=== PATIENT | male | born 1975 | race Caucasian/White ===

== ENCOUNTER 2022-09-21 16:47 | Emergency (ER) | payer OTHER, SELFPAY ==
[2022-09-21 16:58] VITALS: BP 135/88; PULSE 74; RESP 18; TEMP 36.8; O2SAT 100
--- NOTE | 2022-09-21 17:26 | PC.NURSE ---
Dinner tray ordered.
[2022-09-21 17:48] LABS: Basophils Absolute Auto 0.1 K/mm3 (0.0-0.1); Basophils Percent Auto 0.6 % (0.2-1.2); Eosinophils Absolute Auto 0.3 K/mm3 (0-0.3); Eosinophils Percent Auto 2.9 % (0-4.4); Hematocrit 47.5 % (42.0-52.0); Hemoglobin 15.5 g/dL (14.0-18.0); Immature Granulocyte Absolute 0.03 K/mm3 (0.00-0.031); Immature Granulocyte Percent A 0.3 % (0-0.5); Lymphocytes Absolute Auto 2.16 K/mm3 (0.9-3.2); Lymphocytes Percent Auto 21.4 % (18.3-44.2); Mean Corpuscular HGB Conc 32.6 g/dl (32-36); Mean Corpuscular Hemoglobin 29.9 pg (26-34); Mean Corpuscular Volume 91.7 fl (80-100); Monocytes Absolute Auto 0.7 K/mm3 (0.1-0.6); Monocytes Percent Auto 6.4 % (2.6-8.5); Neutrophils Absolute Auto 6.9 K/mm3 (1.3-6.7); Neutrophils Percent Auto 68.4 % (45.5-73.1); Platelet Count Result 288 k/mm3 (150-375); Red Blood Count 5.18 M/mm3 (4.6-6.20); Red Cell Distribution Width 13.3 % (11.5-14.5); White Blood Count 10.1 K/mm3 (4.5-10.0)
[2022-09-21 17:49] LABS: Appearance Urine Clear (Clear); Bilirubin Urine Negative (Negative); Blood Urine Negative (Negative); Color Urine Yellow (Yellow); Glucose Urine UA 1+ mg/dL (Negative); Ketones Urine Negative (Negative); Leukocyte Esterase Ur Negative LEU/UL (Negative); Nitrate Urine Negative (Negative); Protein Urine Trace mg/dL (Negative); Specific Grav Ur >= 1.030 (1.001-1.035); Urobilinogen Urine 0.2 mg/dL (<2.0)
[2022-09-21 17:50] LABS: Add Urine Microscopic? NO
[2022-09-21 17:58] LABS: Alanine Aminotransferase 39 U/L (6-50); Albumin Level 4.8 g/dL (3.5-5.1); Alkaline Phosphatase 65 U/L (38-126); Anion Gap 8 mmol/L (8-16); Aspartate Amino Transferase 32 U/L (17-59); Bilirubin,Total 0.5 mg/dL (0.2-1.3); Blood Urea Nitrogen 16 mg/dL (9-20); Calcium 9.4 mg/dL (8.4-10.2); Carbon Dioxide 30 mmol/L (22-30); Chloride 102 mmol/L (98-107); Estimated CRCL calculation 98 ml/min; Estimated Glomerular Filt Rate > 60; Glucose 83 mg/dL (65-110); Potassium 4.3 mmol/L (3.4-5.0); Sodium 140 mmol/L (137-145)
--- NOTE | 2022-09-21 17:59 | ED.GENADULT ---
HPI - General Adult General Chief complaint: Psychiatric Symptoms Stated complaint: SI Time Seen by Provider: 09/21/22 17:43 History of Present Illness HPI narrative: 47-year-old male with history of substance abuse presented to the emergency department for evaluation after making homicidal and suicidal statements. Patient was at [facility] and was about to be discharged today with an he began making suicidal and homicidal statements. Patient states that he is having some issues securing housing once he is discharged and this was frustrating to him. Upon arrival to the ED patient states he is not suicidal homicidal and stated that he just made these statements because he was frustrated. Related Data Allergies Allergy/AdvReac Type Severity Reaction Status Date / Time No Known Allergies Allergy Verified 09/21/22 17:03 Review of Systems Review of Systems: All systems reviewed & are unremarkable except as noted in HPI and below PMFSH Past Medical History Medical History BMI 33.0-33.9,adult Cerebral palsy Dyslipidemia Pedal edema Scoliosis Family History Family History Other Family history of coronary artery disease Social History Social History Smoking status: Never smoker Second hand tobacco smoke exposure: Yes Alcohol intake: never Substance use: never Substance use type: does not use Gender identity (if verbalized by the patient): Male Exam Narrative: APPEARANCE: Well appearing, no pain, no distress, well-nourished. HEAD: normocephalic, atraumatic. EYES: PERRLA/EOMI, conjunctivae clear. NOSE: Normal no drainage EARS:TMS clear with good light reflex. THROAT: Pharynx clear, no exudate. NECK: Supple. No adenopathy, no masses. RESPIRATORY: Airway patent, respirations nonlabored. Clear to auscultation bilaterally, no rales, rhonchi, wheezing. CARDIOVASCULAR: Regular rate and rhythm without murmurs rubs or gallops. ABDOMINAL: Soft, nontender, nondistended, normal bowel sounds MUSCULOSKELETAL: Moves all extremities. Strength/ROM intact, No edema, No calf tenderness. NEURO: Alert. Cranial nerves II through XII intact. Grossly intact SKIN: Warm, dry. Normal Color PSYCHIATRIC: Normal affect/mood. Course Course Emergency Course: 47-year-old male presented emergency department for evaluation after making suicidal statements. Patient was medically cleared and was evaluated by the crisis counselor. Patient did sign a safety agreement. Patient has no safe place to go. Coordination consult was placed for the morning. At time of signout patient's care coordination consult is pending. Patient was updated on the plan. Reevaluation(s) Reevaluation #1: Patient is medically cleared for evaluation by the crisis counselor. Patient is medically cleared for transport and inpatient psychiatric hospitalization as needed. Vital Signs Vital signs: Vital Signs Temperature 98.2 F 09/21/22 16:58 Pulse Rate 74 09/21/22 16:58 Respiratory Rate 18 09/21/22 16:58 Blood Pressure 135/88 09/21/22 16:58 Pulse Oximetry 100 09/21/22 16:58 Oxygen Delivery Room Air 09/21/22 16:58 Temperature 98.2 F 09/21/22 16:58 Pulse Rate 74 09/21/22 16:58 Respiratory Rate 18 09/21/22 16:58 Blood Pressure 135/88 09/21/22 16:58 Pulse Oximetry 100 09/21/22 16:58 Oxygen Delivery Room Air 09/21/22 16:58 Medical Decision Making Vital Signs Vital Signs: Vital Signs Temperature 98.2 F 09/21/22 16:58 Pulse Rate 74 09/21/22 16:58 Respiratory Rate 18 09/21/22 16:58 Blood Pressure 135/88 09/21/22 16:58 Pulse Oximetry 100 09/21/22 16:58 Oxygen Delivery Room Air 09/21/22 16:58 Temperature 98.2 F 09/21/22 16:58 Pulse Rate 74 09/21/22 16:58 Respiratory Rate 18 09/21/22 16:58
[2022-09-21 18:17] LABS: Amphetamine Screen Urine Negative (Negative); Barbiturate Screen Urine Negative (Negative); Benzodiazepines Screen Urine Negative (Negative); Cannabinoid Screen Urine Negative (Negative); Cocaine Screen Urine Negative (Negative); Methadone Screen Urine Negative (Negative); Opiate Screen Urine Negative (Negative); Phencyclidine Screen Urine Negative (Negative)
[2022-09-21 19:07] LABS: Acetaminophen < 10 ug/mL (10-30); Salicylate < 1.0 mg/dL (2-20)
[2022-09-21 19:07] LABS: Ethanol < 10 mg/dL (<10)
--- NOTE | 2022-09-21 19:31 | PC.NURSE ---
This RN assumed care of patient.
[2022-09-21 19:38] LABS: Influenza A QL RT-PCR Negative (Negative); Influenza B QL RT-PCR Negative (Negative); RSV RNA, RT-PCR Negative (Negative); SARS-CoV-2 RNA PCR Negative (Negative)
--- NOTE | 2022-09-21 22:53 | PC.NURSE ---
This RN contacted bunk house worker Shannon about pt taking a shower. Pt asked several times if he could take a shower. this RN stated to the pt that there are no showers or bath in the ED. This RN brought it to the attention of the charge nurse Michelle who said to call Shannon to see if we could make arrangements. At this time there are no showers available for patient to take a shower. carpenter supervisor stated that once there was a shower available she would let me know.
== END 2022-09-22 07:04 | disposition home or self-care (01) ==
PROVIDERS: Emergency Provider Emergency Medicine; PCP Emergency Medicine
DX: R45.851 Suicidal ideations (principal); G80.9 Cerebral palsy, unspecified; E78.5 Hyperlipidemia, unspecified; E11.9 Type 2 diabetes mellitus without complications; Z79.899 Other long term (current) drug therapy; Z20.822 Contact with and (suspected) exposure to COVID-19
CPT/HCPCS: 36415; 80053; 80307; 81003; 84443; 85025; 87637; 99284